=== PATIENT | female | born 1955 | race Caucasian/White ===

== ENCOUNTER 2016-12-10 14:04 | Emergency (ER) | payer OTHER ==
[2016-12-10] MEDS ORDERED: oxyCOD/ACETAMIN 5 MG/325 MG TABLET PO STA (14:56)
[2016-12-10] MEDS ORDERED: oxyCOD/ACETAMIN 5 MG/325 MG TABLET PO ONE (14:56)
--- NOTE | 2016-12-10 14:56 | ED Physician Documentation ---
PD HPI LOWER EXT INJURY - Stated complaint Stated Complaint: R KNEE INJ - Chief complaint Chief Complaint: Ext Problem - History obtained from History obtained from: Patient - History of Present Illness PD HPI LOW EXT INJURY LOCATION: Right, Knee Type of injury: Fall (off step stool at work), Twist Where injury occurred: Work Timing - onset: How many hours ago (3) Timing - duration: Hours (3) Timing - details: Abrupt onset Pain level max: 8 Pain level now: 8 Improved by: Rest, Ice, Immobilization Worsened by: Moving, Palpating Associated symptoms: Swelling. No: Weakness, Numbness, Tingling Contributing factors: No: Anticoagulated, Prior ortho surgery, Prosthetic joint Similar symptoms before: Has not had sx before Recently seen: Not recently seen Review of Systems Constitutional: denies: Fever GI: denies: Vomiting Musculoskeletal: denies: Neck pain, Back pain Neurologic: denies: Focal weakness, Numbness, Headache, Head injury, LOC PD PAST MEDICAL HISTORY - Past Medical History Past Medical History: Yes Endocrine/Autoimmune: HyPOthyroidism Musculoskeletal: Osteoporosis - Past Surgical History Past Surgical History: No - Present Medications Home Medications: Ambulatory Orders Medication Instructions Recorded Confirmed Alendronate [Fosamax] 70 mg PO Q7D 04/28/13 12/10/16 Levothyroxine [Synthroid] 125 mcg PO QDAC 04/28/13 12/10/16 Cholecalciferol (Vitamin D3) 2,000 unit PO DAILY 12/10/16 12/10/16 [Vitamin D] Oxycodone HCl/Acetaminophen 1 - 2 each PO Q6H PRN #20 tablet 12/10/16 [Percocet 5-325 mg Tablet] - Allergies Allergies/Adverse Reactions: Allergies Allergy/AdvReac Type Severity Reaction Status Date / Time No Known Drug Allergies Allergy Verified 12/10/16 14:15 - Social History Does the pt smoke?: No Smoking Status: Never smoker Does the pt drink ETOH?: Yes Does the pt have substance abuse?: No - Immunizations Immunizations are current?: Yes PD ED PE NORMAL - Vitals Vital signs reviewed: Yes - General General: Alert and oriented X 3, No acute distress - Derm Derm: Warm and dry - Extremities Extremities: Other (Limited ROM 2/2 pain. Swelling with joint effusion to the R knee, TTP medial joint line. NVI. ) - Neuro Neuro: Alert and oriented X 3 - Psych Psych: Normal mood, Normal affect Results - Vitals Vitals: Vital Signs - 24 hr 12/10/16 12/10/16 14:13 16:20 Temperature 37.0 C Heart Rate 70 81 Respiratory 16 16 Rate Blood Pressure 154/95 H 139/86 H O2 Saturation 100 98 Oxygen O2 Source Room air - Rads (name of study) R knee xray Radiology: Prelim report reviewed, EMP read contemporaneously, See rad report ( No acute bony abnormality. Large knee effusion. Mild degenerative changes and ligamentous laxity. ) PD MEDICAL DECISION MAKING - ED course Complexity details: reviewed results, re-evaluated patient, considered differential, d/w patient, d/w family ED course: Patient is a 61-year-old female who presents to the emergency department with a right knee injury at work. On x-ray she appears to have a knee effusion and some degenerative changes in the knee. Likely ligamentous laxity as well. Exam is very limited secondary to acute pain and swelling. Will place on pain medications, knee immobilizer and crutches for home and follow-up with her doctor and orthopedics. She states that she is a [facility] patient and will call them for orthopedic follow-up. Patient counseled regarding signs and symptoms for which I believe and urgent re-evaluation would be necessary. Patient with good understanding of and agreement to plan and is comfortable going home at this time This document was made in part using voice recognition software. While efforts are made to proofread this document, sound alike and grammatical errors may occur. Departure - Departure Disposition: 01 Home, Self Care Clinical Impression: Knee effusion, right Knee sprain Qualifiers: Encounter type: initial encounter Involved ligament of knee: unspecified ligament Laterality: right Qualified Code(s): S83.91XA - Sprain of unspecified site of right knee, initial encounter Condition: Good Instructions: ED Effusion Knee, ED Sprain Knee Follow-Up: your,doctor in 1 week [Other] Prescriptions: Oxycodone HCl/Acetaminophen [Percocet 5-325 mg Tablet] 1 - 2 each PO Q6H PRN # 20 tablet PRN Reason: pain Comments: Return if you worsen. Keep the splint on until your see orthopedics. You can take the knee out occasionally to gently stretch and bend the knee. Do not drink alcohol or drive while on narcotic pain medicine. Note that many narcotic pain relievers also contain tylenol/acetaminophen. Please ensure that your total dose of acetaminophen from all sources does not exceed 3 grams (3000mg) per day. You may constipated on this medication, take a stool softener such as "Colace" twice a day while you are on it. Also recommend a doal-wzl-lbaerrn laxative such as senna or MiraLAX any day that you do not have a bowel movement. If you received narcotic pain medication in the emergency department, do not drive or operate machinery for the next 24 hours. You need to follow up with orthopedics as well and may need a referral from your doctor. Forms: Activity restrictions Discharge Date/Time: 12/10/16 16:37
--- NOTE | 2016-12-10 15:53 | XRAY Preliminary Report ---
Exam: XR Knee 4 View RT IMPRESSION: 1. No acute bony abnormality. 2. Large knee effusion. 3. Mild degenerative changes and ligamentous laxity. [facility] SITE ID: [id number]
--- NOTE | 2016-12-10 16:05 | XRAY Report ---
EXAM: RIGHT KNEE RADIOGRAPHY EXAM DATE: 12/10/2016 03:42 PM. CLINICAL HISTORY: Posterior lateral knee pain after a fall. COMPARISON: None. TECHNIQUE: 4 views. FINDINGS: Bones: Normal. No fractures or bone lesions. Joints: Large effusion. Mild narrowing medial joint space. Tiny osteophytes off the medial compartment. 6 mm medial offset di stal femur relative to the tibia. Soft Tissues: Normal. No soft tissue swelling. IMPRESSION: 1. No acute bony abnormality. 2. Large knee effusion. 3. Mild degenerative changes and ligamentous laxity. [facility] Referring Provider Line: [phone] SITE ID: [id number]
[2016-12-10 16:37] VITALS: BP 139/86
== END 2016-12-10 16:37 | disposition home or self-care (01) ==
LOC: ED 14:04
DX: S83.91XA Sprain of unspecified site of right knee, initial encounter (principal); W07.XXXA Fall from chair, initial encounter; Y99.0 Civilian activity done for income or pay; E03.9 Hypothyroidism, unspecified
CPT/HCPCS: 1040M; 73564; 99283; A9270

== ENCOUNTER 2023-01-11 14:49 | Outpatient (CLI) | payer OTHER | END 2023-01-11 14:50 | disposition short-term general hospital (02) | LOC: EMS 14:49 | DX: S00.81XA Abrasion of other part of head, initial encounter (principal); S50.311A Abrasion of right elbow, initial encounter; R53.1 Weakness; R55 Syncope and collapse; R42 Dizziness and giddiness; V18.4XXA Pedal cycle driver injured in noncollision transport accident in traffic accident, initial encounter; Y93.55 Activity, bike riding; Y92.414 Local residential or business street as the place of occurrence of the external cause | CPT/HCPCS: A0425; A0429 ==

== ENCOUNTER 2023-07-16 13:08 | Outpatient (CLI) | payer OTHER ==
--- NOTE | 2023-07-17 12:06 | Mammography Report ---
BILATERAL DIGITAL SCREENING MAMMOGRAM 3D/2D: 07/16/2023 CLINICAL: Routine screening. Comparison is made to exams dated: 03/19/2021 mammogram - [facility], 12/24/2018 mammogram - [facility], 01/19/2017 mammogram, and 11/30/2014 mammogram - [facility]. Both breasts are heterogeneously dense, which may obscure small masses (category c / 51-75% glandular tissue). No significant masses, calcifications, or other findings are seen in either breast. There has been no significant interval change. IMPRESSION: NEGATIVE There is no mammographic evidence of malignancy. A 1 year screening mammogram is recommended. Based on the Tyrer Cuzick model (a risk assessment model) the patient's lifetime risk is 9.5% and her 10 year risk is 5.6%. According to the ACR, ACS, and NCCN guidelines, an annual breast MRI exam matthew g with mammogram is recommended if the patient's lifetime risk is 20% or greater. This exam was interpreted at Station ID: [id number]. NOTE: For mammograms, a report in lay terms will be sent to the patient. Approximately 15% of breast malignancies will not be visualized mammographically. In the management of a palpable breast mass, a negative mammogram must not discourage biopsy of a clinically suspicious lesion. Electronically Signed By: Maikol lomas/april:07/17/2023 08:05:34 letter sent: No_Letter ACR BI-RADS Category 1: Negative 3341F PARENCHYMAL PATTERN: (D) - The breast(s) demonstrate(s) heterogeneously dense fibroglandular latia costello. BI-RADS CATEGORY: (1) - 1 Mammogram [id number] 1 year screening LATERALITY: (B)
== END 2023-07-16 13:09 | disposition home or self-care (01) ==
LOC: DI 13:08
DX: Z12.31 Encounter for screening mammogram for malignant neoplasm of breast (principal); R92.333 Mammographic heterogeneous density, bilateral breasts